=== PATIENT | female | born 1985 | race Caucasian/White ===

== ENCOUNTER 2017-12-25 10:30 | Emergency (ER) | payer SELFPAY ==
[~2017-12-25] VITALS: Ht 167.6 cm; Wt 68.0 kg
[2017-12-25 10:37] VITALS: BP 148/80
[2017-12-25] MEDS ORDERED: KETOROLAC 60 MG/2 ML VIAL. IM ONE (10:45)
[2017-12-25] MEDS ORDERED: CYCLOBENZAPRINE 10 MG TABLET. PO ONE (10:45)
--- NOTE | 2017-12-25 10:51 | PHYS DOC ---
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 Patient denies radiation of pain, focal neuro deficit, urine and bowel incontinence, abdominal pain, nausea and vomiting, . Patient did not take any medication since her pain was started and stated she continued to work that made her pain worse. Review of Systems Review of Systems Constitutional: Denies fever or chills [] Eyes: Denies change in visual acuity, redness, or eye pain [] HENT: Denies nasal congestion or sore throat [] Respiratory: Denies cough or shortness of breath [] Cardiovascular: No additional information not addressed in HPI [] GI: Denies abdominal pain, nausea, vomiting, bloody stools or diarrhea [] : Denies dysuria or hematuria [] Musculoskeletal: Reports back pain, denies joint pain [] Integument: Denies rash or skin lesions [] Neurologic: Denies headache, focal weakness or sensory changes [] Endocrine: Denies polyuria or polydipsia [] All other systems were reviewed and found to be within normal limits, except as documented in this note. Allergies Allergies Allergies Coded Allergies Type Severity Reaction Last Updated Verified No Known Drug Allergies 12/25/17 No Physical Exam Physical Exam Constitutional: Well developed, well nourished, moderate distress, non-toxic appearance. [] HENT: Normocephalic, atraumatic, bilateral external ears normal, oropharynx moist, no oral exudates, nose normal. [] Eyes: PERRLA, EOMI, conjunctiva normal, no discharge. [] Neck: Normal range of motion, no tenderness, supple, no stridor. [] Cardiovascular:Heart rate regular rhythm, no murmur [] Lungs & Thorax: Bilateral breath sounds clear to auscultation [] Abdomen: Bowel sounds normal, soft, no tenderness, no masses, no pulsatile masses. [] Skin: Warm, dry, no erythema, no rash. [] Back: No midline tenderness, no CVA tenderness, right paraspinal muscle spasm with limited range of motion related to pain] Extremities: No tenderness, no cyanosis, no clubbing, ROM intact, no edema. [] Neurologic: Alert and oriented X 3, normal motor function, normal sensory function, no focal deficits noted. [] Psychologic: Affect normal, judgement normal, mood normal. [] Current Patient Data Vital Signs Vital Signs Date Time Temp Pulse Resp B/P (MAP) Pulse Ox O2 Delivery O2 Flow Rate FiO2 12/25/17 10:37 98.2 86 16 98 Room Air EKG EKG [] Radiology/Procedures Radiology/Procedures [] Course & Med Decision Making Course & Med Decision Making Evaluation of patient in ER showed 32-year-old female patient with complaining of low back pain after lifting Floors. Patient had pulses present in right paraspinal area and felt better with Toradol and felt extremely in ER. She instructed to apply ice on her back and follow up with work comp physician. Jennifer Disclaimer Jennifer Disclaimer This electronic medical record was generated, in whole or in part, using a voice recognition dictation system. Departure Departure: Impression: Primary Impression: Acute lumbosacral myofascial strain Additional Impressions: Tobacco abuse Tobacco abuse counseling Disposition: HOME, SELF-CARE (At 1105) Condition: IMPROVED Referrals: [facility] (PCP) Patient Instructions: Lumbosacral Strain, Smoking Cessation, Tips For Success Additional Instructions: Apply ice on the affected area Follow-up with your primary care physician in 3-5 days Return to ER if not getting better Scripts Naproxen (NAPROSYN) 500 Mg Tablet 1 TAB PO BID, #20 TAB 1 Refill Prov: BERNABE SINCLAIR MD 12/25/17 Cyclobenzaprine Hcl (CYCLOBENZAPRINE HCL) 10 Mg Tablet 1 TAB PO TID, #30 TAB Prov: BERNABE SINCLAIR MD 12/25/17 Problem Qualifiers BERNABE SINCLAIR MD December 25, 2017 10:51
[2017-12-25] MEDS ORDERED: CYCL-331 PO (11:07)
[2017-12-25] MEDS ORDERED: NAPR-683 PO (11:07)
== END 2017-12-25 11:11 | disposition home or self-care (01) ==
LOC: ER 10:30
DX: S39.012A Strain of muscle, fascia and tendon of lower back, initial encounter (principal); Z72.0 Tobacco use; Z71.6 Tobacco abuse counseling; Z90.49 Acquired absence of other specified parts of digestive tract; X50.9XXA Other and unspecified overexertion or strenuous movements or postures, initial encounter; Y93.89 Activity, other specified; Y99.8 Other external cause status; Y92.89 Other specified places as the place of occurrence of the external cause
CPT/HCPCS: 96372; 99284; J1885

== ENCOUNTER 2018-07-09 20:27 | Emergency (ER) | payer BC ==
[~2018-07-09] VITALS: Ht 167.6 cm; Wt 68.0 kg
[~2018-07-09 20:27] MED LIST: CYCL-331 PO; NAPR-683 PO
--- NOTE | 2018-07-09 20:39 | ED.ADGEN ---
Past History Past Medical History: No Pertinent History Past Surgical History: Cholecystectomy Alcohol Use: None Drug Use: None Adult General Chief Complaint Chief Complaint ".. There was this little patch of ice.. and I slipped and twisted this Rt. ankle.. " HPI HPI Patient is a 33 year old female who presents with above hx and complaints of right ankle injury after inversion type injury. Marked edema of ankle. Foot squeeze non-tender. Pt. localized to lateral malleolus. Patient has some laxity on anterior drawer. Distal neurovascular appears to be intact or Equal to left foot and ankle. No other injury reported. Review of Systems Review of Systems Constitutional: Denies fever or chills [] Eyes: Denies change in visual acuity, redness, or eye pain [] HENT: Denies nasal congestion or sore throat [] Respiratory: Denies cough or shortness of breath [] Cardiovascular: No additional information not addressed in HPI [] GI: Denies abdominal pain, nausea, vomiting, bloody stools or diarrhea [] : Denies dysuria or hematuria [] Musculoskeletal: Denies back pain or joint pain []right ankle pain as per history of present illness Integument: Denies rash or skin lesions [] Neurologic: Denies headache, focal weakness or sensory changes [] Endocrine: Denies polyuria or polydipsia [] All other systems were reviewed and found to be within normal limits, except as documented in this note. Family History Family History Noncontributory Current Medications Current Medications Current Medications Medications (Trade) Dose Ordered Sig/[facility] Start Time Stop Time Status Last Admin Dose Admin Hydrocodone Bitartrate/ Ibuprofen (Vicoprofen 7.5-200) 2 tab 1X ONCE 07/09/18 21:00 07/09/18 21:01 DC Ketorolac Tromethamine (Toradol Im) 60 mg 1X ONCE 07/09/18 21:15 07/09/18 21:23 DC 07/09/18 21:15 60 MG Allergies Allergies Allergies Coded Allergies Type Severity Reaction Last Updated Verified No Known Drug Allergies 12/25/17 No Physical Exam Physical Exam Constitutional: in acute distress, non-toxic appearance. [] HENT: Normocephalic, atraumatic, bilateral external ears normal, oropharynx moist, no oral exudates, nose normal. [] Eyes: PERRLA, EOMI, conjunctiva normal, no discharge. [] Neck: Normal range of motion, no tenderness, supple, no stridor. [] Cardiovascular:Heart rate regular rhythm, no murmur [] Lungs & Thorax: Bilateral breath sounds clear to auscultation [] Abdomen: Bowel sounds normal, soft, no tenderness, no masses, no pulsatile masses. [] Skin: Warm, dry, no erythema, no rash. [] Back: No tenderness, no CVA tenderness. [] Extremities: No tenderness, no cyanosis, no clubbing, ROM intact, no edema. [ Except findings in right ankle Neurologic: Alert and oriented X 3, normal motor function, normal sensory function, no focal deficits noted. [] Psychologic: Affect normal, judgement normal, mood normal. [] Current Patient Data Vital Signs Vital Signs Date Time Temp Pulse Resp B/P (MAP) Pulse Ox O2 Delivery O2 Flow Rate FiO2 07/09/18 21:40 94 20 126/73 (90) 99 Room Air 07/09/18 20:27 98.0 EKG EKG [] Radiology/Procedures Radiology/Procedures My interpretation of right ankle film shows edema and no obvious dislocation or fracture.[] Course & Med Decision Making Course & Med Decision Making Pertinent Labs and Imaging studies reviewed. (See chart for details). Ice, elevation, rest, splint, crutches, and take Tylenol and ibuprofen for pain. For marked pain may take Vicoprofen up 4 times a day. Follow-up primary care and orthopedics. Return if any concerns. [] Final Impression Final Impression 1. Rt. Ankle[]-sprain strain Dragjaleel Disclaimer Dragon Disclaimer This electronic medical record was generated, in whole or in part, using a voice recognition dictation system. JESSE ABURTO MD Jul 09, 2018 20:39
[2018-07-09] MEDS ORDERED: HYDROcodon/IBUPROFEN 7.5/200MG 1 TAB TABLET PO ONE (21:00)
[2018-07-09] MEDS ORDERED: HYDR-79 PO (21:02)
[2018-07-09] MEDS ORDERED: KETOROLAC 60 MG/2 ML VIAL. IM ONE (21:15)
--- NOTE | 2018-07-09 21:33 | RAD ---
Three-view right ankle dated 07/09/2018. No comparison available. CLINICAL INDICATION: Pain after injury. FINDINGS: 3 views right ankle show normal bony alignment. No displaced fracture. No acute osseous or articular abnormality. Talar dome is intact. Mild soft tissue swelling. IMPRESSION: Soft tissue swelling with no evidence of underlying acute bony abnormality. Electronically signed by: Daniel Arciniega MD (07/09/2018 9:30 PM) [facility]
[2018-07-09 21:40] VITALS: BP 126/73
== END 2018-07-09 21:40 | disposition home or self-care (01) ==
LOC: ER 20:27
DX: S93.491A Sprain of other ligament of right ankle, initial encounter (principal); X50.1XXA Overexertion from prolonged static or awkward postures, initial encounter; Y93.89 Activity, other specified; Y92.89 Other specified places as the place of occurrence of the external cause; Y99.8 Other external cause status
CPT/HCPCS: 29515; 73610; 96372; 99284; J1885

== ENCOUNTER → 2021-04-01 | Outpatient (CLI) | payer BC ==
[~2021-04-01] MED LIST changes: +HYDR-1179 PO
--- NOTE | 2021-04-01 16:06 | RAD ---
EXAM: XR RT WRIST 3VIEWS 04/01/2021 3:46 PM CLINICAL INDICATION: Pain, injury COMPARISON: None TECHNIQUE: 3 views of the right wrist FINDINGS: No acute fracture. Alignment is normal. Joint spaces are maintained. Soft tissue is normal . IMPRESSION: Normal right wrist radiograph. Electronically signed by: Marleny Brown MD (04/01/2021 4:03 PM) [id number]
== END ==
LOC: PMG 15:40
PROVIDERS: ATTEND Nurse Practitioner Family
DX: M25.531 Pain in right wrist (principal)
CPT/HCPCS: 73110

== ENCOUNTER → 2021-06-02 | Outpatient (CLI) | payer BC ==
--- NOTE | 2021-06-02 08:43 | RAD ---
RS Compliance Statement: One or more of the following individualized dose reduction techniques were utilized for this examinat ion: 1. Automated exposure control 2. Adjustment of the mA and/or kV according to patient size 3. Use of iterative reconstruction technique CT head without contrast 06/02/2021 8:24 AM INDICATION: Migraine, dizziness COMPARISON: None available TECHNIQUE: Multiple axial CT images of the head were obtained from skull base through the vertex with out intravenous contrast. FINDINGS: Head: Ventricles, sulci and basal cisterns are within normal limits. There is no hydrocephalus. Meza-white matter differentiation is normal. There is no acute intracranial hemorrhage. There is no mass, mass e ffect or midline shift. Posterior fossa is normal in appearance. Visualized portions of the orbits are normal. Paranasal sinuses are well aerated. Mastoid air cells a re well aerated. Scalp and calvaria are normal. Calcified and noncalcified subcutaneous nodules withi n the scalp favor benign etiology such as pilar cysts. IMPRESSION: No acute intracranial hemorrhage. Electronically signed by: Julianna Mayfield MD (06/02/2021 8:40 AM) [id number]
== END ==
LOC: CT 08:17
PROVIDERS: ATTEND Physician Assistant Medical
DX: R22.0 Localized swelling, mass and lump, head (principal); G43.909 Migraine, unspecified, not intractable, without status migrainosus; R42 Dizziness and giddiness; L72.11 Pilar cyst
CPT/HCPCS: 70450

== ENCOUNTER → 2021-06-29 | Outpatient (CLI) | payer BC ==
[~2021-06-29] MED LIST changes: -CYCL-331 PO; +CYCL10TA19 PO
--- NOTE | 2021-06-30 08:48 | RAD ---
US PELVIS W/TV History: Reason: DYSMENORRHEA, CRAMPING, ABNORMAL PAP / Spl. Instructions: / History: Comparison: None Technique: Grayscale and color Doppler imaging of the pelvis was performed using transabdominal and t ransvaginal technique. Findings: The uterus measures 7.5 x 5.1 x 4.3 cm. Retroverted uterus. Nabothian cysts noted. The endometrial st ripe measures 10 mm. Right ovary measures 3.7 x 2.0 x 1.7 cm. Left ovary measures 4.2 x 3.1 x 2.3 cm. Dominant left ovarian follicle measures 1.9 cm. Normal Doppler flow to the ovaries. No adnexal masses are seen. IMPRESSION: 1. Unremarkable pelvic ultrasound. Electronically signed by: Apollo Fonseca DO (06/30/2021 8:45 AM) [id number]
== END ==
LOC: US 16:04
PROVIDERS: ATTEND Obstetrics & Gynecology
DX: Z01.419 Encounter for gynecological examination (general) (routine) without abnormal findings (principal); N88.8 Other specified noninflammatory disorders of cervix uteri; N94.6 Dysmenorrhea, unspecified
CPT/HCPCS: 76830; 76856